=== PATIENT | male | born 1985 | race Caucasian/White ===

== ENCOUNTER 2017-12-02 19:59 | Emergency (ER) | payer MEDICAID, SELFPAY ==
[2017-12-02 20:55] LABS: Absolute Lymphocytes (CBC) 1.7 K/uL (0.7-4.9); Absolute Monocytes 1.5 K/uL (0.1-1.3); Absolute Neutrophil 9.8 K/uL (1.8-8.0); Basophils % 0.4 % (0-1.3); Eosinophils % 0.9 % (0-4.4); Hematocrit 46.9 % (39.6-49.0); MCH 27.5 pg (27.0-35.0); MCV 85.3 fL (80-100); MPV 8.2 fL (7.6-11.3); Monocytes % 11.3 % (3.3-12.3)
[2017-12-02 20:58] LABS: Protime INR 0.91
[2017-12-02 21:07] LABS: Potassium 3.9 mmol/L (3.5-5.1)
[2017-12-02] MEDS ORDERED: DEXAMETHASONE 10 MG/ML VIAL ONE (21:13)
--- NOTE | 2017-12-02 21:13 | RAD REPORT ---
EXAM DESCRIPTION: CT - Soft Tissue Neck W/Contr - 12/02/2017 8:55 pm CLINICAL HISTORY: Neck pain, persistent sore throat TECHNIQUE: During dynamic enhancement using 100 milliliters nonionic IV contrast, axial 5 millimeter thick images of the neck were obtained. All CT scans are performed using dose optimization technique as appropriate and may include automated exposure control or mA/KV adjustment according to patient size. FINDINGS: Intracranial portion the examination is unremarkable. Globes and orbital contents are norm al. Mastoid air cells are clear. Paranasal sinuses are clear. Patient has significant left deviation of the anterior and mid nasal septum. There is very extensive edematous/inflammatory attenuation enlarging the left-side pharyngeal tissues . There is thickening and hypodensity that extends from the left-side nasopharynx through the left-si de tonsil and inferiorly through the left side valleculae and piriform sinus to the vocal cord. There is lateral extension with multiple reactive lymph nodes in the left-side soft tissues. Patient appea rs to have several poorly defined tonsillar abscesses. Edematous/inflammatory type attenuation extend s to the medial margin of the submandibular gland. No acute parotid gland abnormality. Infectious/inf lammatory changes extend to the left posterior floor the mouth. No acute vascular finding. Right-sided tonsillar and pharyngeal tissues within normal limits. IMPRESSION: Extensive left-sided pharyngeal and tonsillar infectious/ inflammatory process. The left tonsil is substantially enlarged and appears to contain several poorly defined abscesses. Hy podense inflammatory edema extends from the left-side nasopharynx inferiorly to the left-side cord an d extends laterally to involve the submandibular gland. Additional defined abscess cavities are not c onfirmed. Patient has numerous inflammatory type lymph nodes in the left-side soft tissues. Abscess of a lymph node is not seen.
[2017-12-02] MEDS ORDERED: MORPHINE 4 MG/ML SYR ONE ×2 (21:14→22:47)
[2017-12-02] MEDS ORDERED: IPRATROPIUM BROM 0.5MG/2.5ML ONE (21:14)
[2017-12-02] MEDS ORDERED: ONDANSETRON 4 MG/2 ML VIAL ONE (21:14)
[2017-12-02] MEDS ORDERED: ALBUTEROL 2.5 MG/3 ML NEB SOL ONE (21:14)
[2017-12-02] MEDS ORDERED: NA CHLORIDE 0.9% 1,000 ML ONE (21:15)
--- NOTE | 2017-12-02 21:16 | RAD REPORT ---
EXAM DESCRIPTION: RAD - Chest Single View - 12/02/2017 9:05 pm CLINICAL HISTORY: Wheezing, shortness of breath COMPARISON: February 2016 TECHNIQUE: AP portable chest image was obtained 2050 hours . FINDINGS: No focal lung parenchymal process. Interstitial markings are prominent but not clearly dif ferent from the comparison. No acute failure or volume overload. Heart and vasculature are normal. No measurable pleural effusion and no pneumothorax. No gross bony abnormality seen. No acute aortic fin dings suspected. IMPRESSION: No acute cardiopulmonary process. No significant change from comparison.
--- NOTE | 2017-12-02 22:05 | ER ---
Nurse's Notes [facility] Name: Troy Kulkarni Age: 32 yrs Sex: Male : 1985 Arrival Date: 12/02/2017 Time: 20:00 Bed 13 Private MD: Diagnosis: Left Tonsillar Abscess Presentation: 12/02 20:06 Presenting complaint: Patient states: throat pain X2 days. Transition of care: patient ak1 was not received from another setting of care. Onset of symptoms is unknown. Risk Assessment: Do you want to hurt yourself or someone else? Patient reports no desire to harm self or others. Initial Sepsis Screen: Does the patient meet any 2 criteria? No. Patient's initial sepsis screen is negative. Does the patient have a suspected source of infection? No. Patient's initial sepsis screen is negative. Care prior to arrival: None. 20:06 Method Of Arrival: Ambulatory ak1 20:06 Acuity: SHANA 3 ak1 20:09 Note no resp distress noted. pt swallowing own secretions. pt spitting out mucous. ak1 Triage Assessment: 20:06 General: Appears in no apparent distress. unkempt, Behavior is anxious. Pain: Complains ak1 of pain in throat. EENT: Reports pain when swallowing since yesterday. Neuro: No deficits noted. Cardiovascular: No deficits noted. Respiratory: No deficits noted. GI: No signs and/or symptoms were reported involving the gastrointestinal system. : No signs and/or symptoms were reported regarding the genitourinary system. Derm: No signs and/or symptoms reported regarding the dermatologic system. Musculoskeletal: No signs and/or symptoms reported regarding the musculoskeletal system. Historical: - Allergies: 20:09 No Known Allergies; ak1 - Home Meds: 20:09 Albuterol Inhl [Active]; Adderall XR Oral [Active]; ak1 - PMHx: 20:09 ADD/ADHD; Asthma; ak1 - PSHx: 20:09 None; ak1 - Immunization history:: Adult Immunizations unknown. - Social history:: Smoking status: Patient uses tobacco products, smokes one pack cigarettes per day. - Ebola Screening: : No symptoms or risks identified at this time. Screenin:08 Abuse screen: Denies threats or abuse. Denies injuries from another. Nutritional ak1 screening: No deficits noted. Tuberculosis screening: No symptoms or risk factors identified. Fall Risk None identified. Assessment: 20:15 General: Appears distressed, uncomfortable, slender, Behavior is cooperative, tl3 appropriate for age, anxious. Pain: Complains of pain in left side of throat/neck. Neuro: No deficits noted. Level of Consciousness is awake, alert, obeys commands. Cardiovascular: No deficits noted. Heart tones S1 S2 present Patient's skin is warm and dry. Respiratory: Airway is patent Respiratory effort is even, unlabored, Respiratory pattern is regular, symmetrical. GI: No signs and/or symptoms were reported involving the gastrointestinal system. : No signs and/or symptoms were reported regarding the genitourinary system. EENT: Throat is reddened on left left side of throat swollen and tender. Derm: No signs and/or symptoms reported regarding the dermatologic system. Musculoskeletal: No signs and/or symptoms reported regarding the musculoskeletal system. 21:20 Reassessment: No changes from previously documented assessment. Patient and/or family tl3 updated on plan of care and expected duration. Pain level reassessed. Patient is alert, oriented x 3, equal unlabored respirations, skin warm/dry/pink. pt resting in bed. 22:57 Reassessment: Patient appears in no apparent distress at this time. No changes from tl3 previously documented assessment. Patient and/or family updated on plan of care and expected duration. Pain level reassessed. Patient is alert, oriented x 3, equal unlabored respirations, skin warm/dry/pink. antibiotics infusing, pt resting in bed, lights dimmed, no needs at this time. 23:45 Reassessment: Patient appears in no apparent distress at this time. No changes from tl3 previously documented assessment. Patient and/or family updated on plan of care and expected duration. Pain level reassessed. Patient is alert, oriented x 3, equal unlabored respirations, skin warm/dry/pink. report called to ANT Adler at [facility]. Vital Signs: 20:06 BP 156 / 142; Pulse 90; Resp 18; Temp 98.2(TE); Pulse Ox 98% on R/A; Weight 81.65 kg ak1 (R); Height 5 ft. 11 in. (180.34 cm) (R); Pain 10/10; 21:20 BP 124 / 90; Pulse 80; Resp 18; Pulse Ox 99% ; tl3 21:40 BP 128 / 95; Pulse 84; Resp 18; Pulse Ox 99% on R/A; mt 22:57 BP 135 / 85; Pulse 84; Resp 18; Pulse Ox 99% ; tl3 23:45 BP 128 / 95; Pulse 94; Resp 18; Pulse Ox 99% ; tl3 20:06 Body Mass Index 25.10 (81.65 kg, 180.34 cm) ak1 ED Course: 20:00 Patient arrived in ED. ds1 20:06 Triage completed. ak1 20:06 Arm band placed on Patient placed in an exam room, on a stretcher, Patient notified of ak1 wait time. 20:08 Patient has correct armband on for positive identification. Bed in low position. Call ak1 light in reach. Side rails up X 1. 20:11 Micki Valente, RN is Primary Nurse. tl3 20:15 Jovanni Pan PA is PHCP. cp 20:15 Adal Kelly MD is Attending Physician. cp 20:15 No provider procedures requiring assistance completed. Inserted saline lock: 20 gauge tl3 in right forearm, using aseptic technique. 20:50 CT completed. Patient moved to CT via wheelchair. Patient moved back from CT. cw1 20:55 CT Soft Tissue Neck W/contr In Process Unspecified. EDMS 21:04 X-ray completed. Patient tolerated procedure well. la2 21:05 XRAY Chest (1 view) In Process Unspecified. EDMS 12/03 00:39 Patient transferred, IV remains in place. ea Administered Medications: 12/02 21:20 Drug: NS 0.9% 1000 ml Route: IV; Rate: 1 bolus; Site: left forearm; Delivery: Primary tl3 tubing; 22:17 Follow up: IV Status: Completed infusion; IV Intake: 1000ml tl3 21:23 Drug: Zofran 4 mg Route: IVP; Infused Over: 3 mins; Site: right forearm; tl3 22:16 Follow up: Response: No adverse reaction tl3 21:23 Drug: Decadron - Dexamethasone 10 mg Route: IVP; Infused Over: 2 mins; Site: right tl3 forearm; 22:17 Follow up: Response: No adverse reaction tl3 21:26 Drug: morphine 4 mg Route: IVP; Site: right forearm; tl3 22:16 Follow up: Response: No adverse reaction; Pain is decreased tl3 21:28 Drug: Albuterol - atroVENT (3:1) (2.5 mg - 0.5 mg) 3 ml Route: Nebulizer; tl3 22:18 Follow up: Response: No adverse reaction tl3 22:45 Drug: Clindamycin 900 mg Route: IVPB; Infused Over: 30 mins; Site: right forearm; tl3 23:48 Follow up: IV Status: Completed infusion; IV Intake: 50ml tl3 22:45 Drug: morphine 4 mg Route: IVP; Infused Over: 3 mins; Site: right forearm; tl3 23:49 Follow up: Response: No adverse reaction; Pain is decreased tl3 22:48 Drug: TORadol 30 mg Route: IVP; Site: right forearm; tl3 23:49 Follow up: Response: No adverse reaction; Pain is decreased tl3 Intake: 22:17 IV: 1000ml; Total: 1000ml. tl3 23:48 IV: 50ml; Total: 1050ml. tl3 Outcome: 22:04 ER care complete, transfer ordered by MD. cp 23:36 Transferred by ground EMS to [facility], Transfer form completed. tl3 23:36 Condition: stable 23:36 Instructed on the need for transfer. 12/03 00:28 ER care complete, transfer ordered by MD. cp 00:39 Patient left the ED. marlo Signatures: Dispatcher [employer] [facility] CarsonAlma avilez dsSherlyn Bonilla cw1 Kalpana Andrea RN RN ak1 Jovanni Pan PA PA cp [facility] Rosalina Silva RN RN ea Ardoin, Leslie la2 Lowrey, Tammy, RN RN tl3 Corrections: (The following items were deleted from the chart) 12/02 20:38 20:06 Acuity: SHANA 4 ak1 ak1
--- NOTE | 2017-12-02 22:05 | EDPHYS ---
Physician Documentation [facility] Name: Troy Kulkarni Age: 32 yrs Sex: Male : 1985 Arrival Date: 12/02/2017 Time: 20:00 Bed 13 Private MD: ED Physician Adal Kelly HPI: 12/02 20:20 This 32 yrs old Male presents to ER via Ambulatory with complaints of Neck cp Swelling. 20:20 The patient presents with sore throat, dysphagia, of both solids and liquids. The cp patient describes throat pain as constant. Onset: The symptoms/episode began/occurred 2 day(s) ago. 20:20 Severity of symptoms: in the emergency department the symptoms are unchanged, despite cp home interventions. Historical: - Allergies: 20:09 No Known Allergies; ak1 - Home Meds: 20:09 Albuterol Inhl [Active]; Adderall XR Oral [Active]; ak1 - PMHx: 20:09 ADD/ADHD; Asthma; ak1 - PSHx: 20:09 None; ak1 - Immunization history:: Adult Immunizations unknown. - Social history:: Smoking status: Patient uses tobacco products, smokes one pack cigarettes per day. - Ebola Screening: : No symptoms or risks identified at this time. ROS: 20:25 Constitutional: Positive for poor PO intake, Negative for body aches, chills, fever. cp 20:25 Eyes: Negative for injury, pain, redness, and discharge. cp 20:25 ENT: Positive for difficulty swallowing, ear pain, sore throat, Negative for difficulty handling secretions. 20:25 Cardiovascular: Negative for chest pain, edema, palpitations. 20:25 Respiratory: Positive for cough, wheezing, Negative for shortness of breath. 20:25 Abdomen/GI: Negative for abdominal pain, nausea, vomiting, and diarrhea. cp 20:25 Skin: Negative for cellulitis, rash. cp 20:25 Neuro: Negative for altered mental status, headache, weakness. 20:25 All other systems are negative. Exam: 20:33 Constitutional: The patient appears alert, awake, non-diaphoretic, non-toxic, well cp developed, well nourished, uncomfortable. 20:33 Head/Face: Normocephalic, atraumatic. Eyes: Pupils equal round and reactive to light, cp extra-ocular motions intact. Lids and lashes normal. Conjunctiva and sclera are non-icteric and not injected. Cornea within normal limits. Periorbital areas with no swelling, redness, or edema. 20:33 ENT: External ear(s): are unremarkable, Ear canal(s): are normal, clear, TM's: bulging, is not appreciated, bilaterally, dullness, bilaterally, erythema, is not appreciated, bilaterally, Nose: is normal, Mouth: Lips: moist, Oral mucosa: pink and intact, moist, Posterior pharynx: Airway: no evidence of obstruction, patent, Tonsils: enlarged on the left, with erythema, no exudate, Uvula: deviated to patient's right, swelling, that is moderate, erythema, that is moderate, exudate, is not appreciated, Dental exam: dental caries, Voice: is muffled. 20:33 Neck: ROM/movement: is normal, is supple, no range of motions limitations, no meningismus, no nuchal rigidity, Lymph nodes: lymphadenopathy is appreciated. 20:33 Chest/axilla: Inspection: normal, Palpation: is normal, no crepitus, no tenderness. 20:33 Cardiovascular: Rate: normal, Rhythm: regular. 20:33 Respiratory: the patient does not display signs of respiratory distress, Respirations: normal, no use of accessory muscles, no retractions, no splinting, no tachypnea, labored breathing, is not present, Breath sounds: decreased breath sounds, are not appreciated, stridor, is not appreciated, wheezing: that is moderate, is heard diffusely. 20:33 Abdomen/GI: Inspection: abdomen appears normal, Bowel sounds: active, all quadrants, Palpation: abdomen is soft and non-tender, in all quadrants. 20:33 Back: pain, is absent, ROM is normal. 20:33 Skin: cellulitis, is not appreciated, no rash present. 20:33 Neuro: Orientation: to person, place \T\ time. Mentation: lucid, able to follow commands, Cerebellar function: is grossly normal, Motor: moves all fours, strength is normal, Sensation: no obvious gross deficits. Vital Signs: 20:06 BP 156 / 142; Pulse 90; Resp 18; Temp 98.2(TE); Pulse Ox 98% on R/A; Weight 81.65 kg ak1 (R); Height 5 ft. 11 in. (180.34 cm) (R); Pain 10/10; 21:20 BP 124 / 90; Pulse 80; Resp 18; Pulse Ox 99% ; tl3 21:40 BP 128 / 95; Pulse 84; Resp 18; Pulse Ox 99% on R/A; mt 22:57 BP 135 / 85; Pulse 84; Resp 18; Pulse Ox 99% ; tl3 23:45 BP 128 / 95; Pulse 94; Resp 18; Pulse Ox 99% ; tl3 20:06 Body Mass Index 25.10 (81.65 kg, 180.34 cm) ak1 MDM: 20:15 Patient medically screened. cp 21:00 Differential diagnosis: epiglottitis, tika's angina, peritonsillar abscess cp pharyngitis, retropharyngeal abcess. 21:30 Data reviewed: vital signs, nurses notes, lab test result(s), radiologic studies, CT cp scan, plain films. 21:30 Test interpretation: by ED physician or midlevel provider: plain radiologic studies. cp 12/02 20:05 Order name: Strep; Complete Time: 21:20 ak1 12/02 20:33 Order name: CBC with Diff; Complete Time: 21:20 cp 12/02 21:20 Interpretation: Normal except: WBC 13.2; RBC 5.50; TRICIA% 74.4; LYM% 13.0; NEUT A 9.8. cp 12/02 20:33 Order name: BMP; Complete Time: 21:20 cp 12/02 21:20 Interpretation: Normal except: GFR 87. cp 12/02 20:33 Order name: PT-INR; Complete Time: 22:22 cp 12/02 20:33 Order name: Ptt, Activated; Complete Time: 22:22 cp 12/02 20:34 Order name: Throat Culture EDMS 12/02 20:33 Order name: CT Soft Tissue Neck W/contr; Complete Time: 21:20 cp 12/02 20:33 Order name: XRAY Chest (1 view); Complete Time: 21:20 cp 12/02 20:33 Order name: IV; Complete Time: 20:39 cp 12/02 21:21 Order name: NPO; Complete Time: 22:13 cp Administered Medications: 21:20 Drug: NS 0.9% 1000 ml Route: IV; Rate: 1 bolus; Site: left forearm; Delivery: Primary tl3 tubing; 22:17 Follow up: IV Status: Completed infusion; IV Intake: 1000ml tl3 21:23 Drug: Zofran 4 mg Route: IVP; Infused Over: 3 mins; Site: right forearm; tl3 22:16 Follow up: Response: No adverse reaction tl3 21:23 Drug: Decadron - Dexamethasone 10 mg Route: IVP; Infused Over: 2 mins; Site: right tl3 forearm; 22:17 Follow up: Response: No adverse reaction tl3 21:26 Drug: morphine 4 mg Route: IVP; Site: right forearm; tl3 22:16 Follow up: Response: No adverse reaction; Pain is decreased tl3 21:28 Drug: Albuterol - atroVENT (3:1) (2.5 mg - 0.5 mg) 3 ml Route: Nebulizer; tl3 22:18 Follow up: Response: No adverse reaction tl3 22:45 Drug: Clindamycin 900 mg Route: IVPB; Infused Over: 30 mins; Site: right forearm; tl3 23:48 Follow up: IV Status: Completed infusion; IV Intake: 50ml tl3 22:45 Drug: morphine 4 mg Route: IVP; Infused Over: 3 mins; Site: right forearm; tl3 23:49 Follow up: Response: No adverse reaction; Pain is decreased tl3 22:48 Drug: TORadol 30 mg Route: IVP; Site: right forearm; tl3 23:49 Follow up: Response: No adverse reaction; Pain is decreased tl3 Disposition: 12/03 07:08 Co-signature as Attending Physician, Adal Kelly MD I agree with the assessment and wa plan of care. Disposition: 12/03/17 00:28 Transfer ordered to [facility]. Diagnosis is Left Tonsillar Abscess. - Reason for transfer: Higher level of care. - Accepting physician is David. - Condition is Stable. - Problem is new. - Symptoms have improved. Signatures: Dispatcher [employer] EDKalpana Castellano, RN RN ak1 Jovanni Pan PA PA cp Antunez, Elena, RN RN ea Appiah, William, MD MD wa Lowrey, Tammy, RN RN tl3 Corrections: (The following items were deleted from the chart) 12/02 23:07 22:04 12/02/2017 22:04 Transfer ordered to [facility]. Diagnosis is cp Tonsillar Abscess. Reason for transfer: Higher level of care. Accepting physician is doctor. Condition is Stable. Problem is new. Symptoms have improved. cp 12/03 00:13 12/02 23:07 12/02/2017 22:04 Transfer ordered to [facility]. ea Diagnosis is Left Tonsillar Abscess. Reason for transfer: Higher level of care. Accepting physician is Dena. Condition is Stable. Problem is new. Symptoms have improved. cp 12/03 00:39 00:28 12/03/2017 00:28 Transfer ordered to [facility]. Diagnosis is ea Left Tonsillar Abscess. Reason for transfer: Higher level of care. Accepting physician is David. Condition is Stable. Problem is new. Symptoms have improved. cp
[2017-12-02] MEDS ORDERED: KETOROLAC 30 MG/ML INJ ONE (22:47)
[2017-12-02] MEDS ORDERED: CLINDAMYCIN 900MG/D5W 900 MG/50 ML BAG IV ONE (22:47)
[2017-12-03 00:49] VITALS: TEMP 98.2
[2017-12-03 00:50] VITALS: O2SAT 99
[2017-12-03 00:53] VITALS: BP 128/95
== END 2017-12-03 00:39 | disposition short-term general hospital (02) ==
LOC: ER 19:59
DX: J36 Peritonsillar abscess (principal); J45.909 Unspecified asthma, uncomplicated; F17.210 Nicotine dependence, cigarettes, uncomplicated
CPT/HCPCS: 36415; 70491; 71045; 80048; 85025; 85610; 85730; 87070; 87081; 94640; 96361; 96365; 96375; 99285; J1100; J2405; J7030; Q9967

== ENCOUNTER 2018-04-22 18:45 | Emergency (ER) | payer SELFPAY ==
[2018-04-22] MEDS ORDERED: LEVALBUTEROL 1.25 MG/3 ML NEB ONE (19:23)
[2018-04-22] MEDS ORDERED: NA CHLORIDE 0.9% 500 ML ONE (19:23)
[2018-04-22] MEDS ORDERED: METHYLPREDNISOLONE 125 MG INJ ONE (19:23)
--- NOTE | 2018-04-22 20:11 | RAD REPORT ---
EXAM DESCRIPTION: Som Evans (2 Views)04/22/2018 7:37 pm CLINICAL HISTORY: sob COMPARISON: November 2017 FINDINGS: The lungs appear clear of acute infiltrate. The heart is normal size IMPRESSION: No acute abnormalities displayed
--- NOTE | 2018-04-22 20:34 | ER ---
Nurse's Notes [facility] Name: Troy Kulkarni Age: 32 yrs Sex: Male : 1985 Arrival Date: 04/22/2018 Time: 18:47 Bed 13 Private MD: Demetrius Guzman Diagnosis: Asthma Presentation: 04/22 18:51 Presenting complaint: Patient states: SOB that started today. Pt used Albuterol today. sv Transition of care: patient was not received from another setting of care. Onset of symptoms was April 22, 2018. Care prior to arrival: None. 18:51 Method Of Arrival: Ambulatory sv 18:51 Acuity: SHANA 3 sv 18:56 Note Pt placed on O2 \T\ 2L per NC. sv 19:06 Risk Assessment: Do you want to hurt yourself or someone else? Patient reports no lp1 desire to harm self or others. Initial Sepsis Screen: Does the patient meet any 2 criteria? No. Patient's initial sepsis screen is negative. Does the patient have a suspected source of infection? No. Patient's initial sepsis screen is negative. Historical: - Allergies: 18:52 No Known Allergies; sv - Home Meds: 18:52 Albuterol Inhl [Active]; Adderall XR Oral [Active]; sv - PMHx: 18:52 ADD/ADHD; Asthma; sv - PSHx: 18:52 None; sv - Immunization history:: Flu vaccine is not up to date. - Social history:: Smoking status: Patient uses tobacco products, smokes one pack cigarettes per day. - Ebola Screening: : No symptoms or risks identified at this time. - Family history:: not pertinent. - Hospitalizations: : No recent hospitalization is reported. Screenin:06 Abuse screen: Denies threats or abuse. Denies injuries from another. Nutritional lp1 screening: No deficits noted. Tuberculosis screening: No symptoms or risk factors identified. Fall Risk None identified. Assessment: 19:04 General: Appears uncomfortable, Behavior is appropriate for age. Pain: Denies pain. lp1 Neuro: Level of Consciousness is awake, alert, obeys commands, Oriented to person, place, time, situation. Cardiovascular: Patient's skin is warm and dry. Respiratory: Reports shortness of breath cough that is productive, Airway is patent Respiratory effort is even, Breath sounds with wheezes bilaterally. Onset: The symptoms/episode began/occurred gradually, the patient has mild shortness of breath. GI: No signs and/or symptoms were reported involving the gastrointestinal system. : No signs and/or symptoms were reported regarding the genitourinary system. EENT: No signs and/or symptoms were reported regarding the EENT system. Derm: Skin is pink, warm \T\ dry. Musculoskeletal: No deficits noted. 20:15 Reassessment: Patient appears in no apparent distress at this time. Patient and/or lp1 family updated on plan of care and expected duration. Pain level reassessed. Patient is alert, oriented x 3, equal unlabored respirations, skin warm/dry/pink. Patient states symptoms have improved. Vital Signs: 18:52 BP 146 / 124; Pulse 86; Resp 28; Temp 98.4; Pulse Ox 94% on R/A; Weight 81.65 kg; sv Height 5 ft. 11 in. (180.34 cm); 19:06 BP 113 / 80; Pulse 78; Resp 18; Pulse Ox 95% on 2 lpm NC; lp1 20:15 BP 130 / 73; Pulse 74; Resp 18; Pulse Ox 93% on R/A; lp1 20:40 Pulse 75; Resp 18; Pulse Ox 95% on R/A; lp1 18:52 Body Mass Index 25.10 (81.65 kg, 180.34 cm) sv ED Course: 18:47 Patient arrived in ED. sb2 18:47 Demetrius Guzman MD is Private Physician. sb2 18:52 Triage completed. sv 18:53 Arm band placed on. sv 19:04 Darek Mendoza MD is Attending Physician. rn 19:04 Verónica Herrera RN is Primary Nurse. lp1 19:07 Patient has correct armband on for positive identification. Pulse ox on. NIBP on. lp1 19:16 Inserted saline lock: 20 gauge in left antecubital area, using aseptic technique. Blood cb2 collected. 19:37 XRAY Chest Pa And Lat (2 Views) In Process Unspecified. EDMS 20:40 No provider procedures requiring assistance completed. IV discontinued, No lp1 redness/swelling at site. Pressure dressing applied. Administered Medications: 19:24 Drug: SOLU-Medrol 125 mg Route: IVP; Site: left antecubital; lp1 20:40 Follow up: Response: No adverse reaction lp1 19:24 Drug: NS 0.9% 500 ml Route: IV; Rate: bolus; Site: left antecubital; lp1 20:00 Follow up: IV Status: Completed infusion; IV Intake: 500ml lp1 19:24 Drug: Xopenex (3) 1.25 mg Route: Inhalation; lp1 Intake: 20:00 IV: 500ml; Total: 500ml. lp1 Outcome: 20:33 Discharge ordered by . rn 20:41 Discharged to home ambulatory. lp1 20:41 Condition: good 20:41 Discharge instructions given to patient, Instructed on discharge instructions, follow up and referral plans. medication usage, Demonstrated understanding of instructions, follow-up care, medications, Prescriptions given X 3. 20:41 Patient left the ED. lp1 Signatures: Dispatcher [employer] EDDee Carrera RN RN sv Nieto, Roman, MD MD rn Pena, Laura, RN RN lp1 Mo Vergara Sheri sb2 Corrections: (The following items were deleted from the chart) 19:07 19:04 Respiratory: Reports shortness of breath cough that is productive, Airway is lp1 patent Respiratory effort is even, Breath sounds with wheezes bilaterally. Onset: The symptoms/episode began/occurred gradually, lp1
--- NOTE | 2018-04-22 20:34 | EDPHYS ---
Physician Documentation [facility] Name: Troy Kulkarni Age: 32 yrs Sex: Male : 1985 Arrival Date: 04/22/2018 Time: 18:47 Bed 13 Private MD: Demetrius Guzman ED Physician Darek Mendoza HPI: 04/22 19:28 This 32 yrs old Male presents to ER via Ambulatory with complaints of rn Breathing Difficulty. 19:28 The patient has shortness of breath at rest. Onset: The symptoms/episode began/occurred rn at an unknown time. Duration: The symptoms are intermittent. The patient's shortness of breath is aggravated by coughing, talking, walking. Severity of symptoms: At their worst the symptoms were mild in the emergency department the symptoms are unchanged. The patient has experienced similar episodes in the past. Reports sob, reports asthma, gets attacks every year when weather gets cold, no fever, feels like has respiratory infection.. Historical: - Allergies: 18:52 No Known Allergies; sv - Home Meds: 18:52 Albuterol Inhl [Active]; Adderall XR Oral [Active]; sv - PMHx: 18:52 ADD/ADHD; Asthma; sv - PSHx: 18:52 None; sv - Immunization history:: Flu vaccine is not up to date. - Social history:: Smoking status: Patient uses tobacco products, smokes one pack cigarettes per day. - Ebola Screening: : No symptoms or risks identified at this time. - Family history:: not pertinent. - Hospitalizations: : No recent hospitalization is reported. ROS: 19:28 Constitutional: Negative for fever, chills, and weight loss, Eyes: Negative for injury, rn pain, redness, and discharge, Neck: Negative for injury, pain, and swelling, Cardiovascular: Negative for chest pain, palpitations, and edema, Respiratory: + sob and wheezing Abdomen/GI: Negative for abdominal pain, nausea, vomiting, diarrhea, and constipation, MS/Extremity: Negative for injury and deformity, Skin: Negative for injury, rash, and discoloration, Neuro: Negative for headache, weakness, numbness, tingling, and seizure. Exam: 19:28 Constitutional: This is a well developed, well nourished patient who is awake, alert, rn and in no acute distress. Eyes: Pupils equal round and reactive to light, extra-ocular motions intact. Lids and lashes normal. Conjunctiva and sclera are non-icteric and not injected. Cornea within normal limits. Periorbital areas with no swelling, redness, or edema. ENT: MMM, no stridor Cardiovascular: Regular rate and rhythm with a normal S1 and S2. No gallops, murmurs, or rubs. Normal PMI, no JVD. No pulse deficits. Respiratory: + faint bilateral wheezing, no retractions, no increased work of breathing Abdomen/GI: soft, non-tender Skin: Warm, dry with normal turgor. Normal color with no rashes, no lesions, and no evidence of cellulitis. MS/ Extremity: Pulses equal, no cyanosis. Neurovascular intact. Full, normal range of motion. Equal circumference. Neuro: Awake and alert, GCS 15, oriented to person, place, time, and situation. Cranial nerves II-XII grossly intact. Motor strength 5/5 in all extremities. Sensory grossly intact. Cerebellar exam normal. Vital Signs: 18:52 BP 146 / 124; Pulse 86; Resp 28; Temp 98.4; Pulse Ox 94% on R/A; Weight 81.65 kg; sv Height 5 ft. 11 in. (180.34 cm); 19:06 BP 113 / 80; Pulse 78; Resp 18; Pulse Ox 95% on 2 lpm NC; lp1 20:15 BP 130 / 73; Pulse 74; Resp 18; Pulse Ox 93% on R/A; lp1 20:40 Pulse 75; Resp 18; Pulse Ox 95% on R/A; lp1 18:52 Body Mass Index 25.10 (81.65 kg, 180.34 cm) sv MDM: 19:04 Patient medically screened. rn 20:33 Differential diagnosis: asthma, Bronchitis pneumonia, Pneumothorax. Data reviewed: rn vital signs, nurses notes, lab test result(s), radiologic studies, plain films, and as a result, I will discharge patient. Counseling: I had a detailed discussion with the patient and/or guardian regarding: the historical points, exam findings, and any diagnostic results supporting the discharge/admit diagnosis, radiology results, the need for outpatient follow up, to return to the emergency department if symptoms worsen or persist or if there are any questions or concerns that arise at home. Special discussion: I discussed with the patient/guardian in detail that at this point there is no indication for admission to the hospital. It is understood, however, that if the symptoms persist or worsen the patient needs to return immediately for re-evaluation. 04/22 19:07 Order name: XRAY Chest Pa And Lat (2 Views); Complete Time: 20:15 rn 04/22 19:07 Order name: IV Start; Complete Time: 19:16 rn Administered Medications: 19:24 Drug: SOLU-Medrol 125 mg Route: IVP; Site: left antecubital; lp1 20:40 Follow up: Response: No adverse reaction lp1 19:24 Drug: NS 0.9% 500 ml Route: IV; Rate: bolus; Site: left antecubital; lp1 20:00 Follow up: IV Status: Completed infusion; IV Intake: 500ml lp1 19:24 Drug: Xopenex (3) 1.25 mg Route: Inhalation; lp1 Disposition: 04/22/18 20:33 Discharged to Home. Impression: Asthma. - Condition is Stable. - Discharge Instructions: Asthma, Acute Bronchospasm. - Prescriptions for Prednisone 20 mg Oral Tablet - take 3 tablet by ORAL route once daily for 5 days; 15 tablet. Albuterol Sulfate 2.5 mg /3 mL (0.083 %) Inhalation Solution for Nebulization - inhale 1 unit by NEBULIZATION route every 8 hours As needed; 1 box. Albuterol Sulfate 90 mcg/actuation - inhale 1-2 puff by INHALATION route every 4-6 hours; 1 Inhaler. - Medication Reconciliation Form, Thank You Letter, Antibiotic Education, Prescription Opioid Use form. - Follow up: Private Physician; When: As needed; Reason: Recheck today's complaints, Re-evaluation by your physician. - Problem is new. - Symptoms have improved. Signatures: Dispatcher [employer] Dee Cuellar RN RN sv Nieto, Roman, MD MD rn Pena, Laura, RN RN lp1 Corrections: (The following items were deleted from the chart) 20:41 20:33 04/22/2018 20:33 Discharged to Home. Impression: Asthma. Condition is Stable. lp1 Forms are Medication Reconciliation Form, Thank You Letter, Antibiotic Education, Prescription Opioid Use. Follow up: Private Physician; When: As needed; Reason: Recheck today's complaints, Re-evaluation by your physician. Problem is new. Symptoms have improved. rn
[2018-04-22 21:56] VITALS: TEMP 98.4
[2018-04-22 21:59] VITALS: BP 130/73
[2018-04-22 22:00] VITALS: O2SAT 95
== END 2018-04-22 20:41 | disposition home or self-care (01) ==
LOC: ER 18:45
DX: J45.909 Unspecified asthma, uncomplicated (principal); F90.9 Attention-deficit hyperactivity disorder, unspecified type; Z79.899 Other long term (current) drug therapy; F17.210 Nicotine dependence, cigarettes, uncomplicated
CPT/HCPCS: 71046; 96361; 96374; 99284; J2930